=== PATIENT | female | born 1960 | race African-American/Black ===

== ENCOUNTER 2020-09-23 14:03 | Emergency (ER) | payer OTHER, MEDICAID ==
[~2020-09-23] VITALS: Ht 157.5 cm; Wt 55.0 kg
[2020-09-23 15:49] VITALS: BP 130/55
== END 2020-09-23 17:18 | disposition home or self-care (01) ==
LOC: EDBD 14:03 → ER 14:03
DX: R09.89 Other specified symptoms and signs involving the circulatory and respiratory systems (principal); I10 Essential (primary) hypertension; I69.320 Aphasia following cerebral infarction; Z88.0 Allergy status to penicillin
CPT/HCPCS: 70360; 71045; 99284